=== PATIENT | female | born 1990 | race Caucasian/White ===

== ENCOUNTER 2019-02-26 16:52 | Emergency (ER) | payer BC, OTHER ==
[2019-02-26] MEDS ORDERED: Dexamethasone IV* 4 MG/ML 1 ML (4 MG) PO ONE (17:12)
[2019-02-26] MEDS ORDERED: Famotidine TAB* 20 MG PO ONE (17:12)
--- NOTE | 2019-02-26 17:41 | ED ---
Allergic Reaction/Systemic - HPI Summary HPI Summary: 28 yr old female with the complaint of bee sting to buttock and thigh area. She was stung at 3 pm at work. She took 50 mg of benadryl given by the nurse. She has hives on arms, legs and torso with mild eyelid swelling. No SOB, no hoarsness, no tongue or lip swelling. No other complaints. - History of Current Complaint Chief Complaint: UCBiteInjury Time Seen by Provider: 02/26/19 17:12 Hx Last Menstrual Period: 02/20/19 Pain Intensity: 0 - Allergies/Home Medications Allergies/Adverse Reactions: Allergies Allergy/AdvReac Type Severity Reaction Status Date / Time No Known Allergies Allergy Verified 02/26/19 17:11 Home Medications: Home Medications Fluticasone NASAL SPRAY 50MCG* [Flonase NASAL SPRAY 50MCG*] 2 spray BOTH NARES DAILY PRN 02/26/19 [History Confirmed 02/26/19] LevoCETirizine TAB (NF) [Xyzal TAB (NF)] 5 mg PO DAILY 02/26/19 [History Confirmed 02/26/19] PMH/Surg Hx/FS Hx/Imm Hx - Surgical History Surgery Procedure, Year, and Place: lasik surgery 2016 Infectious Disease History: No Infectious Disease History: Denies: Traveled Outside the [place] in Last 30 Days - Family History Known Family History: Positive: None - Social History Occupation: Employed Full-time Alcohol Use: Occasionally Substance Use Type: Reports: None Smoking Status (MU): Never Smoked Tobacco Review of Systems Constitutional: Negative Negative: Ear Ache, Nasal Discharge Negative: Shortness Of Breath, Cough Positive: Rash All Other Systems Reviewed And Are Negative: Yes Physical Exam Triage Information Reviewed: Yes Vital Signs On Initial Exam: Initial Vitals Temp Pulse Resp BP Pulse Ox 99.2 F 99 16 110/87 100 02/26/19 17:07 02/26/19 17:07 02/26/19 17:07 02/26/19 17:07 02/26/19 17:07 Vital Signs Reviewed: Yes Appearance: Positive: Well-Appearing, No Pain Distress Skin: Positive: Other - hives all over body Eyes: Positive: EOMI ENT: Positive: Pharynx normal. Negative: Muffled voice, Hoarse voice Neck: Positive: Nontender Respiratory/Lung Sounds: Positive: Clear to Auscultation, Breath Sounds Present Cardiovascular: Positive: RRR. Negative: Murmur Abdomen Description: Negative: Distended Musculoskeletal: Positive: Strength/ROM Intact Neurological: Positive: Sensory/Motor Intact, Alert, Oriented to Person Place, Time, CN Intact II-III Psychiatric: Positive: Normal AVPU Assessment: Alert Diagnostics - Vital Signs Vital Signs Temp Pulse Resp BP Pulse Ox 02/26/19 17:07 99.2 F 99 16 110/87 100 - Laboratory Lab Statement: Any lab studies that have been ordered have been reviewed, and results considered in the medical decision making process. Re-Evaluation - Re-Evaluation First Eval Re-Evaluation Time: 18:02 Change: Improved Comment: hives are resolving, and she is feeling better, and itching gone. Allergic Reaction Course/Dx - Course Course Of Treatment: 28 yr old female with hives. Improved. Rx with medrol dose felton - Diagnoses Provider Diagnoses: Urticaria Discharge ED - Sign-Out/Discharge Documenting (check all that apply): Patient Departure All imaging exams completed and their final reports reviewed: No Studies - Discharge Plan Condition: Good Disposition: HOME Prescriptions: methylPREDNISolone [Medrol] 4 mg PO .SEE FELTON INSTRUCTION #1 [id number] Patient Education Materials: Urticaria (ED) Forms: *Work Release Referrals: LANA Olson [Primary Care Provider] - 2 Days Additional Instructions: take benadryl 25 mg every six hours for the next three days. - Billing Disposition and Condition Condition: GOOD Disposition: Home
[2019-02-26 18:13] VITALS: BP 104/71
== END 2019-02-26 18:13 | disposition home or self-care (01) ==
LOC: UCCORT 16:52
DX: L50.9 Urticaria, unspecified (principal)
CPT/HCPCS: 99202; A9270-GY; G0463; J1100